=== PATIENT | male | born 1940 | race Caucasian/White ===

== ENCOUNTER 2025-05-02 08:25 | Inpatient (IN) | payer MEDICARE, OTHER ==
[2025-04-29 12:11] LABS: LEUKOCYTE ESTERASE ,URINE NEGATIVE (Neg); MEAN PLATELET VOLUME 8.7 FL (7.4-10.4); NITRITES, URINE NEGATIVE (Neg); OCCULT BLOOD,URINE TRACE-INTACT (Neg); PRE OP HEMATOCRIT 45.6 % (42.0-52.0); PRE OP HEMOGLOBIN 15.2 g/dL (14.0-17.9); PRE OP PLATELET COUNT 247 X10'3 (140-440); PRE OP WHITE BLOOD COUNT 5.5 10'3 (4.8-10.8); RED CELL DISTRIBUTION WIDTH 14.6 % (11.5-14.5)
--- NOTE | 2025-04-29 12:13 | RADIOLOGY REPORT ---
DI CHEST,TWO VIEWS, HISTORY: PREOP COMPARISON: DI CHEST,SINGLE VIEW on DOS: 04/30/23 DI CHEST,SINGLE VIEW on DOS: 04/30/23 TECHNICAL DATA: 2 view of the chest was obtained. FINDINGS: Lines and tubes: None Cardiomediastinal silhouette: normal Pulmonary vasculature: normal Lung expansion: normal Lung airspace: normal Lung interstitium: normal Pleura: normal Pneumothorax: no Bones: Unremarkable Other: no IMPRESSION: No acute intrathoracic abnormality.
[2025-04-29 12:16] LABS: UA COLLECTION TYPE CLN CATCH MIDSTREAM
[2025-04-29 12:18] LABS: MUCUS STRANDS NONE SEEN /LPF (Neg); SQUAMOUS EPITHELIAL CELL,UR NONE SEEN /LPF (FEW)
[2025-04-29 12:21] LABS: PRE OP INR 1.4 INR; PRE OP PROTIME 14.1 SECONDS (9.0-12.0)
[2025-04-29 12:22] LABS: CREATININE 1.76 MG/DL (0.60-1.10); PRE OP ALT 35 U/L (30-65); PRE OP ANION GAP 5 (8-16); PRE OP AST 26 U/L (10-37); PRE OP BILIRUB, TOTAL 0.9 MG/DL (0.0-1.0); PRE OP GLUCOSE 127 MG/DL (70-104); PRE OP POTASSIUM 4.3 MMOL/L (3.4-5.1); PRE OP SODIUM 140 MMOL/L (135-145); TOTAL CARBON DIOXIDE 30.0 MMOL/L (24-32); eGFR 37 ML/MIN
[2025-04-29 12:26] LABS: PRE OP PARTIAL THROMB. TIME 45.0 SECONDS (22-32)
--- NOTE | 2025-04-29 15:44 | ELECTROCARDIOGRAPH REPORT ---
[facility] Test Date: 2025-04-29 Test Time: 12:21:56 Pat Name: RITCHIE DUPREE Department: PRE/OP CARDIOLOGY Patient ID: [id number] Room: Gender: M Trigonometry Tutor: RM : 1940 Requested By: SUZI ISLAS Order Number: [id number] Reading MD: Dr. BRIDGETTE Patel Measurements Intervals [place] Rate: 70 P: 0 [place]: 0 QRS: 40 QRSD: 100 T: 53 QT: 383 QTc: 414 Interpretive Statements Atrial fibrillation Abnormal R-wave progression, early transition Electronically Signed On 04-29-2025 17:34:[address] BRIDGETTE Patel Please click the below link to view image of tracing.
[2025-05-01] MEDS: DOCUMENT DATE & TIME OF BETA-BLOCKER PO ONE (05:30)
[2025-05-02] VITALS (28 sets, daily range): BP systolic 91–161; BP diastolic 62–118; PULSE 66–119; RESP 9–18; TEMP 97.1–97.7; O2SAT 93–99
[~2025-05-02] VITALS: Ht 188 cm; Wt 109.5 kg
[2025-05-02] MEDS: VANCOMYCIN/H2O 1.5g/300mL PB 300 ML IV ONE (05:30)
[2025-05-02] MEDS: ceFAZolin 2gm/dext,iso 50mL 50 ML IV ONE (05:30)
[~2025-05-02 08:25] MED LIST: AZEL137S4 BOTHNARES; DILT120C94 PO; METO-395 PO; RIVA15TA PO; SILD100T PO; ondansetron/PF 4mg/2ml inj IV PRN
[2025-05-02] MEDS: ringers solution, lacted 1,000 ML IV SCH (09:00)
[2025-05-02] MEDS ORDERED: midazolam 1 mg/ML 2ml injection ONE (11:02)
[2025-05-02] MEDS ORDERED: fentaNYL/PF 50MCG/1 ML 2ML syringe ONE (11:02)
[2025-05-02] MEDS ORDERED: LIDOcaine 1%/PF 5ML 10 MG/ML VIAL ONE (11:25)
[2025-05-02] MEDS ORDERED: propofol inj 20 ML IV ONE (11:25)
[2025-05-02] MEDS ORDERED: rocuronium 10mg/ml inj IV ONE (11:31)
[2025-05-02] MEDS ORDERED: heparin 1,000unit/ml 10ml vial 10 ML ONE (11:35)
[2025-05-02] MEDS ORDERED: dexamethasone sod phosphate 4mg/ml inj. ONE (11:37)
[2025-05-02] MEDS ORDERED: glycopyrrolate 0.2mg/ml inj ONE (11:37)
[2025-05-02] MEDS ORDERED: ondansetron/PF 4mg/2ml inj ONE (11:39)
[2025-05-02] MEDS ORDERED: labetalol 20mg/4ml (5mg/ml) syringe IV PRN (11:55)
[2025-05-02] MEDS ORDERED: docusate sod 100mg capsule PO PRN (11:55)
[2025-05-02] MEDS ORDERED: potassium CL 10mEq/100ml bag 100 ML IV PRN (11:55)
[2025-05-02] MEDS ORDERED: pantoprazole 40mg Tablet.DR PO PRN (11:55)
[2025-05-02] MEDS ORDERED: ondansetron/PF 4mg/2ml inj IV PRN (11:55)
[2025-05-02] MEDS ORDERED: potassium Cl 20mEq/100mL bag 100 ML IV PRN (11:55)
[2025-05-02] MEDS ORDERED: hydrALAZINE 20mg/ml inj. IV PRN (11:55)
[2025-05-02] MEDS ORDERED: potassium Cl 40MEQ/270ML bag 250 ML IV PRN (11:55)
[2025-05-02] MEDS ORDERED: potassium Cl 40MEQ/1/2NS 520ml 520 ML IV PRN (11:55)
[2025-05-02] MEDS ORDERED: HYDROcodone/acetaminophen 5mg/325mg tablet PO PRN (11:55)
[2025-05-02] MEDS ORDERED: ALPRAZolam 0.25mg tablet PO PRN (11:55)
[2025-05-02] MEDS ORDERED: magnesium sulf-water 4G/100mL 100 ML IV PRN (11:55)
[2025-05-02] MEDS ORDERED: magnesium sulf-water 2g/50mL 50 ML IV PRN (11:55)
[2025-05-02] MEDS ORDERED: potassium Cl 20 mEq SR tablet PO PRN (11:55)
--- NOTE | 2025-05-02 12:19 | ELECTROCARDIOGRAPH REPORT ---
[facility] Test Date: 2025-05-02 Test Time: 12:18:18 Pat Name: RITCHIE DUPREE Department: [facility] IN Room: [place] [address] Gender: M Line Person: PHILLIP : 1940 Requested By: SUZI ISLAS Order Number: [id number] Reading MD: Dr. BRIDGETTE Patel Measurements Intervals [place] Rate: 74 P: 0 ID: 0 QRS: 18 QRSD: 116 T: 28 QT: 410 QTc: 455 Interpretive Statements Atrial fibrillation Nonspecific intraventricular conduction delay Low voltage, precordial leads Electronically Signed On 05-02-2025 16:54:[address] BRIDGETTE Patel Please click the below link to view image of tracing.
--- NOTE | 2025-05-02 12:27 | OPERATIVE REPORT ---
Operative Report Providers to CC CC: Chana Moyer MD ~ Date of Procedure: May 02, 2025 Pre-Operative Diagnosis: Atrial Fibrillation with high bleeding risk Post-Operative Diagnosis SAME as PRE-Op Procedure Performed 1. Transseptal Puncture via TIERRA guidance 2. Left Atrial Appendogram 3. Left Atrial Appendage closure with 31mm Watchman FLX Pro Device 4. Ultrasound guided access, right Femoral Vein Surgeon: Suzi Redding MD [place] [facility] [employer] n/a Anesthesiologist: Luis Carmona Type of Anesthesia: General Findings: Left Atrial appendage amenable to percutaneous closure. Complications None Prosthetics\\Implants used: 31mm Watchman Flx Pro Estimated Blood Loss: Minimal Specimen Removed: None Description of Procedure: The patient was brought to the entry level lab technician in a fasting state. They underwent General anesthesia. Ultrasound was used to guide access to the right femoral vein where two nuzhat-cross Perclose devices were placed and upsized to an 8Fr sheath. Heparin was given to maintain an ACT over 250 seconds. An 0.035" wire was advanced into the SVC. The 8Fr sheath was then removed and the 8.5Fr VersaCross Transseptal sheath was advanced into the SVC. The RF wire was then advanced to the tip of the sheath/dilator. Using TIERRA guidance, appropriate position of the tip of the sheath was determined and using an energized wire tip, advanced into the left atrium. The sheath and dilator were then advanced over the wire into the left atrium. Over the wire, the Versacross sheath was removed and exchanged for the Watchman Sheath. The wire and dilator were then removed and exchanged for a 5Fr pigtail catheter which was placed into the left atrial appendage and an appendogram performed in the LEDEZMA-Caudal position. There, ACT was confirmed to be therapeutic. The Watchman sheath was then advanced into the left atrial appendage over the pigtail catheter. Once appropriate position was determined, the pigtail was removed, the 31mm Watchman FLX device and delivery system were advanced into the tip of the sheath. The delivery system was advanced until an appropriate FLX ball was formed. The guide was then retracted and the Watchman device was unsheathed will full deployment in the appendage. Next, PASS criteria was performed confirming adequate positioning and anchoring(using a tug-test), sizing showing adequate compression, and no significant leak around the device. Another Appendogram was performed confirming placement. The device was then released from the delivery system. The guide and delivery system were removed and the perclose tied as well as the [id number]-[id number]-[id number] suture, ensuring adequate hemostasis. Mean LA Presssure: 17mmHg Contrast: 15cc ACT: 281s Device Compression: 26-30% RESULTS: 1. Successful Left-Atrial Appendage closure with a 31mm Watchman FLX Pro device 2. Right Femoral Vein access, closed with Perclose x 2 and Lmhoty-nr-Uazvp suture 3. Resume Xarelto 15mg QD x 45days with repeat imaging at that time. If sealed without evidence of device related thrombosis, can stop OAC and start ASA 81mg QD indefinitely, plavix 75mg QD x 6 months. They will be watched in the recovery area until stable, then transferred to the telemetry at that time. SUZI REDDING MD May 02, 2025 12:26
[2025-05-02] MEDS: ceFAZolin 1GM/D5W- ADD-VANTAGE 50 ML IV SCH (15:31)
[2025-05-02] MEDS: normal saline 1000ml 1,000 ML IV SCH (15:32)
[2025-05-02] MEDS: sod chloride 0.9% 10ml flush syringe IV SCH (16:34)
--- NOTE | 2025-05-02 17:33 | CARDIOLOGY REPORT ---
APPROVED REPORT EXAM: Focused, limited intraprocedural transesophageal 2D, spectral and color flow Doppler echocardiogram during WATCHMAN deployment. Patient Location: [facility] Blood Pressure: 135 / 52 mmHg Heart Rate: 89-125 bpm Rhythm: ATRIAL FIBRILLATION Indications PRE IMAGING AND WATCHMAN FLX RADAMES CLOSURE DEVICE IMPLANTATION CHRONIC ATRIAL FIBRILLATION 31mm WATCHMAN FLX RADAMES CLOSURE DEVICE TIERRA PROBE PASSED BY: [place] FUENTES MD Loss Prevention Auditor: Vandana REDDING MD / Interventionalist: Vandana Redding MD / Device rep: S[place], [facility] Previous echo: NA LEFT VENTRICLE Normal LV size and wall thickness. Overall systolic function is normal. LVEF is 65%. RIGHT VENTRICLE RV is normal size and function. ATRIA LA appears severely dilated. Wing shaped appendage without thrombus detected. Left upper pulmonary vein identified. Intact interatrial septum. Width / length averages are: 0degr 22 x 29 mm; 45degr 17 x 27 mm; 90degr 22 x 29 mm; 135degr 23 x 23 mm. Loop 20: Septal tenting visualized with RF atrial septal puncture performed. Loop23: Wire in LA. Pigtail advanced to tip of appendage. LA pressure is measured at:17 mmHG. Appendagram performed. Loop 27: Flex balll deployed. 31 mm Watchman FLX device, LOOP32: PASS criteria attempted, Successful "TUG" test performed. Optimal compression obtained - shoulder to shoulder measurement is: 22.0 mm. Loop42: Device released, sheath pulled back across interatrial septum. Patent interatrial septum with small residual left to right shunt (s/p transseptal puncture). Poor color and spectral Doppler angle. Successfully occluded left atrial appendage with Watchman device well positioned without thrombus. No residual flow around device detected by color and spectral flow Doppler. No pericardial effusion post-implant. GREAT VESSELS Ascending aorta is normal in size. PERICARDIUM Normal pericardium. No effusion. CONCLUSION Normal LV size and wall thickness. Overall systolic function is normal. LVEF is 65%. RV is normal size and function. LA appears severely dilated. Wing shaped appendage without thrombus detected. Left upper pulmonary vein identified. Intact interatrial septum. Width / length averages are: 0degr 22 x 29 mm; 45degr 17 x 27 mm; 90degr 22 x 29 mm; 135degr 23 x 23 mm. Loop 20: Septal tenting visualized with RF atrial septal puncture performed. Loop23: Wire in LA. Pigtail advanced to tip of appendage. LA pressure is measured at:17 mmHG. Appendagram performed. Loop 27: Flex balll deployed. 31 mm Watchman FLX device, LOOP32: PASS criteria attempted, Successful "TUG" test performed. Optimal compression [place] - shoulder to shoulder measurement is: 22.0 mm. Loop42: Device released, sheath pulled back across interatrial septum. Patent interatrial septum with small residual left to right shunt (s/p transseptal puncture). Poor color and spectral Doppler angle. Successfully occluded left atrial appendage with Watchman device well positioned without thrombus. No residual flow around device detected by color and spectral flow Doppler. No pericardial effusion post- implant. Normal pericardium. No effusion. Conclusion Normal LV size and wall thickness. Overall systolic function is normal. LVEF is 65%. RV is normal size and function. LA appears severely dilated. Wing shaped appendage without thrombus detected. Left upper pulmonary vein identified. Intact interatrial septum. Width / length averages are: 0degr 22 x 29 mm; 45degr 17 x 27 mm; 90degr 22 x 29 mm; 135degr 23 x 23 mm. Loop 20: Septal tenting visualized with RF atrial septal puncture performed. Loop23: Wire in LA. Pigtail advanced to tip of appendage. LA pressure is measured at:17 mmHG. Appendagram performed. Loop 27: Flex balll deployed. 31 mm Watchman FLX device, LOOP32: PASS criteria attempted, Successful "TUG" test performed. Optimal compression obtained - shoulder to shoulder measurement is: 22.0 mm. Loop42: Device released, sheath pulled back across interatrial septum. Patent interatrial septum with small residual left to right shunt (s/p transseptal puncture). Poor color and spectral Doppler angle. Successfully occluded left atrial appendage with Watchman device well positioned without thrombus. No residual flow around device detected by color and spectral flow Doppler. No pericardial effusion post-implant. Normal pericardium. No effusion.
[2025-05-02] MEDS: metoprolol succinate 25mg (24-HOUR) SR. Tablet PO SCH (20:53)
[2025-05-02] MEDS: vancomycin/NS 1 GM ADD-VANTAGE 250 ML IV SCH (20:54)
[2025-05-03 02:00] VITALS: BP 130/71; PULSE 90; RESP 15; TEMP 97; O2SAT 94
[2025-05-03 06:00] VITALS: BP 121/70; PULSE 76; RESP 15; TEMP 98; O2SAT 76; O2SAT 95
[2025-05-03] MEDS: diltiazem CD 120mg capsule (once-daily) PO SCH (07:04)
[2025-05-03] MEDS: rivaroxaban 15mg tablet PO SCH (07:04)
[2025-05-03 07:24] LABS: MEAN PLATELET VOLUME 9.2 FL (7.4-10.4); RED CELL DISTRIBUTION WIDTH 15.2 % (11.5-14.5)
[2025-05-03 07:29] LABS: INR 1.2 INR
--- NOTE | 2025-05-03 07:33 | ELECTROCARDIOGRAPH REPORT ---
[facility] Test Date: 2025-05-03 Test Time: 07:29:31 Pat Name: RITCHIE DUPREE Department: [facility] 3S Room: [place] [address] A Gender: M Wood Veneer Taper: PHILLIP : 1940 Requested By: SUZI ISLAS Order Number: [id number] Reading MD: Dr. BRIDGETTE Patel Measurements Intervals [place] Rate: 76 P: 0 [place]: 0 QRS: 29 QRSD: 109 T: 58 QT: 393 QTc: 442 Interpretive Statements Atrial fibrillation Low voltage, precordial leads Electronically Signed On 05-03-2025 16:50:[address] BRIDGETTE Patel Please click the below link to view image of tracing.
[2025-05-03 08:00] VITALS: RESP 18; O2SAT 95
--- NOTE | 2025-05-03 09:24 | RADIOLOGY REPORT ---
CHEST RADIOGRAPH Indication: s/p Watchman Technique: Single frontal view of the chest was obtained Comparison: DI CHEST TWO VIEWS on DOS: 04/29/25 FINDINGS: Lines and Tubes: None Lungs: No focal consolidation. Pleura: No effusion. No pneumothorax. Cardiomediastinal contours: Unremarkable Bones: No acute osseous abnormality. IMPRESSION: 1. No acute cardiopulmonary disease.
[2025-05-03 11:00] VITALS: BP 106/52; PULSE 82; RESP 17; TEMP 97.3; O2SAT 95
[2025-05-03] MEDS ORDERED: TRAZ-251 PO (11:34)
[2025-05-03 12:17] LABS: CREATININE 1.62 MG/DL (0.60-1.10); PRO BRAIN NATRIURETIC PEPTIDE 1871 PG/ML (0-450); TOTAL CARBON DIOXIDE 21.7 MMOL/L (24-32); eCRCL 40 ML/MIN; eGFR 41 ML/MIN
--- NOTE | 2025-05-03 15:40 | DISCHARGE SUMMARY ---
Discharge Summary Providers to CC ~ Discharge Summary Admission Diagnosis: Atrial Fibrillation with high bleeding risk Hospital Course DATE OF ADMISSION: 05/02/25 DATE OF DISCHARGE: 05/03/25 Discharge Diagnosis\Comment: Case atrial fibrillation with high-risk for bleeding status post left atrial appendage occlusion with Watchman Operations\Procedures: 1. Transseptal Puncture via TIERRA guidance 2. Left Atrial Appendogram 3. Left Atrial Appendage closure with 31mm Watchman FLX Pro Device 4. Ultrasound guided access, right Femoral Vein Consultants: No consultants Complications: No complications Condition on DC: Stable Continued Medications: Azelastine HCl (Azelastine HCl) 137 Mcg (0.1 %) [place].pump 1 SPR BOTHNARES BID Diltiazem Hcl (Diltiazem 24HR Er) 120 Mg Cap.sr.24h 1 CAP PO DAILY for 30 Days, #30 CAP 0 Refills Metoprolol Succinate (Metoprolol Succinate) 25 Mg Tab.sr.24h 1 TAB PO BID for 30 Days, #30 TAB 0 Refills Rivaroxaban (Xarelto) 15 Mg Tab 1 TAB PO DAILY for 30 Days, #30 TAB 0 Refills Sildenafil Citrate* (Viagra*) 100 Mg Tablet 1 TAB PO Q7D PRN for SEXUAL ACTIVITY Discharge Summary: Patient with past medical history significant for atrial fibrillation with high- risk for bleeding presented for planned left atrial appendage occlusion with Watchman. Underwent placement of a 31 mm watchman FL X pro device with Dr. Artie Redding. Please see his dictation for further details on the procedure. He tolerated the procedure well. Was monitored overnight in the telemetry unit. Has remained hemodynamically stable. Has been up and ambulatory with no complaints of chest pain, pressure, shortness for breath. No dizziness, lightheadedness or syncope. Postoperative testing was reviewed by Dr. Artie Redding and she was deemed stable for discharge home. Physical exam prior to discharge: General: Awake, alert, oriented. No apparent distress Neck: Supple. Normal range of motion. No JVD Respiratory: Lungs are clear to auscultation bilaterally. No respiratory distress. Chest: Normal shape and size. No accessory muscle use. Cardiovascular: Regular rate and rhythm. S1-S2. No murmur, gallop, rub. Gastrointestinal: Abdomen is soft. Nontender to palpation. Bowel sounds present. Extremities: No lower extremity edema, cyanosis or clubbing. Femoral cath site without bleeding. No hematoma or swelling. Neurologic: Alert and oriented x4. Nonfocal Psychiatric: Normal mood and affect. Skin: Normal color. Warm and dry. Plan: Patient is being discharged home in stable condition. We will follow up as scheduled. Activity restrictions reviewed. We will take oral anticoagulation as prescribed. *Problems/Diagnosis: (1) Atrial fibrillation Total Time Spent on D/C: Up to 30 Minutes Counseling Services Smoking & Tobacco Cessation: N/A KIKI VALENTIN NP May 03, 2025 15:40
--- NOTE | 2025-05-03 17:55 | CARDIOLOGY REPORT ---
APPROVED REPORT EXAM: Limited 2D, Doppler, and color-flow Echocardiogram. Patient Location: [facility] Blood Pressure: 126/74 mmHg Heart Rate: 100-128 bpm Rhythm: Atrial Fibrillation Indications SAME DAY WATCHMAN IMPLANT FOLLOW-UP 31 mm Watchman FLX Closure Device Citizenship Teacher is Vandana Redding MD Previous echo 05/02/25 [facility] EF 65%; Intact interatrial septum with small left to right shunt by color and spectral flow Doppler s/p transeptal puncture. No PE Tricuspid Valve TR P. Velocity 290 cm/s RAP ESTIMATE 10 mmHg TR Peak Gr. 34 mmHg RVSP 44 mmHg LEFT VENTRICLE LV appears normal in size and thickness. Overall systolic function appears normal. LVEF is 65%. RIGHT VENTRICLE RVSP is estimated at 44 mmHG. ATRIA LA is moderately dilated. Intact interatrial septum with (small) L to R shunt s/p transseptal puncture by color and spectral Doppler. TRICUSPID VALVE The tricuspid valve is normal in structure. Moderate tricuspid regurgitation. PERICARDIUM There is no pericardial effusion. Other Information Study Quality: Adequate Conclusion LV appears normal in size and thickness. Overall systolic function appears normal. LVEF is 65%. RVSP is estimated at 44 mmHG. LA is moderately dilated. Intact interatrial septum with (small) L to R shunt s/p transseptal puncture by color and spectral Doppler. The tricuspid valve is normal in structure. Moderate tricuspid regurgitation. There is no pericardial effusion.
== END 2025-05-03 16:17 | disposition home or self-care (01) | DRG 274 ==
LOC: PAS IN 08:25 → PCU 3S 14:27
PROVIDERS: ADMIT Student in an Organized Health Care Education/Training Program; ATTEND Student in an Organized Health Care Education/Training Program
PROC: B24BZZ4 Ultrasonography of Heart with Aorta, Transesophageal (ICD-10-PCS; 2025-05-02)
PROC: 02L73DK Occlusion of Left Atrial Appendage with Intraluminal Device, Percutaneous Approach (ICD-10-PCS; principal; 2025-05-02 11:18)
DX: I48.91 Unspecified atrial fibrillation (principal); Z00.6 Encounter for examination for normal comparison and control in clinical research program; Z79.01 Long term (current) use of anticoagulants; Z88.1 Allergy status to other antibiotic agents; Z91.030 Bee allergy status
CPT/HCPCS: 33340; 36415; 71045; 71046; 76937; 80053; 81001; 82948; 83735; 83880; 85025; 85347; 85610; 85730; 86885; 86900; 86901; 86920; 87081; 87088; 93005; 93308; 93312; 93325; A4618; A6258; A6449; C1760; C1889; C1893; G0378; J0690; J1100; J1644; J2250; J2405; J2704; J2710; J3010; J3373; J3375; J3490; J7030; J7040; J7120; Q9967